=== PATIENT | female | born 1995 | race Caucasian/White ===

== ENCOUNTER 2017-12-24 06:04 | Emergency (ER) | payer MEDICAID ==
[2017-12-24] MEDS ORDERED: HYOSCYAMINE SL 0.125 MG TABLET SL STA (06:25)
--- NOTE | 2017-12-24 06:25 | ED Physician Documentation ---
PD HPI ABD PAIN - Stated complaint Stated Complaint: ABD PX - Chief complaint Chief Complaint: Abd Pain - History obtained from History obtained from: Patient - History of Present Illness Timing - onset: How many hours ago (3) Timing - duration: Hours (3) Timing - details: Gradual onset Pain level max: 8 Pain level now: 6 Quality: Aching, Pain Location: RUQ, Epigastric Radiation: Other (mid back) Improved by: Other (nothing) Worsened by: Eating (states ate macaroni and cheese with kale last night), Palpation Associated symptoms: Nausea, Vomiting (states made herself vomit x 1). No: Fever, Hematemesis, Diarrhea, Constipation, Melena, Hematochezia, Dysuria Similar symptoms before: Has not had sx before Recently seen: Not recently seen Review of Systems Ten Systems: 10 systems reviewed and negative Constitutional: denies: Fever, Chills Nose: denies: Rhinorrhea / runny nose, Congestion Throat: denies: Sore throat Cardiac: denies: Chest pain / pressure Respiratory: denies: Dyspnea, Cough, Wheezing GI: denies: Hematemesis, Bloody / black stool : denies: Dysuria, Now EGA Skin: denies: Rash Musculoskeletal: denies: Neck pain, Back pain Neurologic: denies: Headache PD PAST MEDICAL HISTORY - Past Medical History Past Medical History: No - Past Surgical History Past Surgical History: No - Present Medications Home Medications: Ambulatory Orders Medication Instructions Recorded Confirmed No Known Home Medications 12/24/17 12/24/17 - Allergies Allergies/Adverse Reactions: Allergies Allergy/AdvReac Type Severity Reaction Status Date / Time No Known Drug Allergies Allergy Verified 12/24/17 06:13 - Social History Does the pt smoke?: No Smoking Status: Never smoker Does the pt drink ETOH?: No Does the pt have substance abuse?: No - Immunizations Immunizations are current?: Yes PD ED PE NORMAL - Vitals Vital signs reviewed: Yes - General General: Alert and oriented X 3, No acute distress - HEENT HEENT: Moist mucous membranes - Neck Neck: Supple, no meningeal sign - Cardiac Cardiac: RRR, Strong equal pulses - Respiratory Respiratory: No respiratory distress, Clear bilaterally - Abdomen Abdomen: Soft, Non distended, Other (Tender palpation epigastric and right upper quadrant. Positive Forman sign) - Back Back: No CVA TTP, No spinal TTP - Derm Derm: Warm and dry - Extremities Extremities: No edema - Neuro Neuro: Alert and oriented X 3 Results - Vitals Vitals: Vital Signs - 24 hr 12/24/17 06:08 Temperature 36.2 C L Heart Rate 68 Respiratory 18 Rate Blood Pressure 136/89 H O2 Saturation 100 Oxygen O2 Source Room air PD MEDICAL DECISION MAKING - ED course Complexity details: reviewed results, re-evaluated patient, considered differential, d/w patient ED course: Patient is a 22-year-old female who presents to the emergency department with abdominal pain today. She states this feels similar to gas that she has had in the past, but on examination is tender in the right upper quadrant. Laboratory testing will be performed and right upper quadrant ultrasound ordered. Patient will be signed out to the oncoming emergency department physician for follow-up of these test results. This document was made in part using voice recognition software. While efforts are made to proofread this document, sound alike and grammatical errors may occur. - Sepsis Event Vital Signs: Vital Signs - 24 hr 12/24/17 06:08 Temperature 36.2 C L Heart Rate 68 Respiratory 18 Rate Blood Pressure 136/89 H O2 Saturation 100 Oxygen O2 Source Room air Departure - Departure Clinical Impression: Abdominal pain Qualifiers: Abdominal location: right upper quadrant Qualified Code(s): R10.11 - Right upper quadrant pain Condition: Stable
[2017-12-24 06:35] LABS: BASOPHILS % (AUTO) 0.6 %; EOSINOPHILS # (AUTO) 0.2 10^3/uL (0.0-0.7); EOSINOPHILS % (AUTO) 2.4 %; HGB - HEMOGLOBIN 12.9 g/dL (12.0-16.0); LYMPHOCYTES # (AUTO) 2.1 10^3/uL (1.5-3.5); LYMPHOCYTES % (AUTO) 28.2 %; MEAN CORPUSCULAR HGB CONC 34.3 g/dL (32.0-36.0); MEAN CORPUSCULAR VOLUME 81.5 fL (81.0-99.0); MEAN PLATELET VOLUME 8.7 fL (7.9-10.8); MONOCYTES # (AUTO) 0.4 10^3/uL (0.0-1.0); NEUTROPHILS # (AUTO) 4.8 10^3/uL (1.5-6.6); NEUTROPHILS % (AUTO) 63.8 %; PLT - PLATELET COUNT 229 10^3/uL (130-450); RED BLOOD COUNT 4.61 10^6/uL (4.20-5.40); RED CELL DISTRIBUTION WIDTH 14.5 % (12.0-15.0); WHITE BLOOD COUNT 7.5 x10^3/uL (4.8-10.8)
[2017-12-24 06:42] LABS: BILIRUBIN,URINE NEGATIVE (NEGATIVE); GLUCOSE, URINE (UA) NEGATIVE (NEGATIVE); KETONES,URINE (UA) NEGATIVE (NEGATIVE); LEUKOCYTE ESTERASE, URINE NEGATIVE (NEGATIVE); NITRITE,URINE NEGATIVE (NEGATIVE); OCCULT BLOOD,URINE NEGATIVE (NEGATIVE); PH,URINE 6.5 PH (5.0-7.5); PROTEIN,URINE NEGATIVE (NEGATIVE); UROBILINOGEN,URINE 0.2 (NORMAL) E.U./dL (NORMAL)
[2017-12-24 06:45] LABS: CLARITY,URINE CLEAR (CLEAR); HCG UR QUAL NEGATIVE
[2017-12-24 06:53] LABS: ALBUMIN 4.2 g/dL (3.2-5.5); ALBUMIN/GLOBULIN RATIO 1.2 (1.0-2.2); BILIRUBIN,TOTAL 0.3 mg/dL (0.2-1.0); CALCIUM 9.1 mg/dL (8.5-10.3); CREATININE 0.8 mg/dL (0.4-1.0); TOTAL PROTEIN 7.8 g/dL (6.7-8.2)
--- NOTE | 2017-12-24 09:41 | Ultrasound Report ---
Reason: RUQ abd pain Procedure Date: 12/24/2017 Accession Number: [id number] / [id number] Procedure: US - Abdomen Limited CPT Code: FULL RESULT: EXAM: ABDOMEN ULTRASOUND LIMITED, RUQ EXAM DATE: 12/24/2017 07:57 AM. CLINICAL HISTORY: Right upper quadrant abdominal pain. COMPARISON: None. TECHNIQUE: Real-time scanning was performed with static images obtained. FINDINGS: Liver: Parenchymal echotexture is mildly coarse and echogenic which can be seen with parenchymal disease such as steatosis. The right lobe measures at least 14.7 cm. Main portal vein flow: Hepatopetal. Gallbladder: The sonographic Forman sign could not be assessed as the patient had been medicated. The gallbladder demonstrates multiple mobile calculi. There is no pericholecystic fluid, significant gallbladder wall thickening or pericholecystic abscess. Biliary System: CBD measures 4 mm. No intrahepatic or extrahepatic ductal dilatation. Other: Kidney measures up to 11.4 cm and demonstrates preserved flow by color Doppler with no overt calculi or hydronephrosis. IMPRESSION: Cholelithiasis. The sonographic Forman sign could not be assessed as the patient had been medicated. The examination is formally equivocal, however, cholecystitis is felt to be less likely. If clinical suspicion for cholecystitis persists, recommend HIDA scan. RADIA
--- NOTE | 2017-12-24 10:26 | ED Physician Documentation ---
PD HPI ABD PAIN - Stated complaint Stated Complaint: ABD PX - Chief complaint Chief Complaint: Abd Pain - History obtained from History obtained from: Patient PD PAST MEDICAL HISTORY - Past Medical History Past Medical History: No - Past Surgical History Past Surgical History: No - Present Medications Home Medications: Ambulatory Orders Medication Instructions Recorded Confirmed No Known Home Medications 12/24/17 12/24/17 - Allergies Allergies/Adverse Reactions: Allergies Allergy/AdvReac Type Severity Reaction Status Date / Time No Known Drug Allergies Allergy Verified 12/24/17 06:13 - Social History Does the pt smoke?: No Smoking Status: Never smoker Does the pt drink ETOH?: No Does the pt have substance abuse?: No - Immunizations Immunizations are current?: Yes Results - Vitals Vitals: Vital Signs - 24 hr 12/24/17 12/24/17 06:08 08:16 Temperature 36.2 C L Heart Rate 68 53 L Respiratory 18 15 Rate Blood Pressure 136/89 H 111/77 O2 Saturation 100 99 Oxygen O2 Source Room air - Labs Labs: Laboratory Tests 12/24/17 12/24/17 12/24/17 06:25 06:25 06:30 WBC 7.5 RBC 4.61 Hgb 12.9 Hct 37.6 MCV 81.5 MCH 28.0 MCHC 34.3 RDW 14.5 Plt Count 229 MPV 8.7 Neut # (Auto) 4.8 Lymph # (Auto) 2.1 [place] # (Auto) 0.4 Eos # (Auto) 0.2 Baso # (Auto) 0.0 Absolute Nucleated RBC 0.00 Nucleated RBC % 0.0 Sodium 133 L Potassium 4.0 Chloride 95 L Carbon Dioxide 29 Anion Gap 9.0 BUN 15 Creatinine 0.8 Estimated GFR (MDRD) 89 Glucose 115 H Calcium 9.1 Total Bilirubin 0.3 AST 25 ALT 34 Alkaline Phosphatase 69 Total Protein 7.8 Albumin 4.2 Globulin 3.6 Albumin/Globulin Ratio 1.2 Lipase 39 Urine Color YELLOW Urine Clarity CLEAR Urine pH 6.5 Ur Specific [place] 1.025 Urine Protein NEGATIVE Urine Glucose (UA) NEGATIVE Urine Ketones NEGATIVE Urine Occult Blood NEGATIVE Urine Nitrite NEGATIVE Urine Bilirubin NEGATIVE Urine Urobilinogen 0.2 (NORMAL) Ur Leukocyte Esterase NEGATIVE Ur Microscopic Review NOT INDICATED Urine Culture Comments NOT INDICATED Urine HCG, Qual 12/24/17 06:30 WBC RBC Hgb Hct MCV MCH MCHC RDW Plt Count MPV Neut # (Auto) Lymph # (Auto) [place] # (Auto) Eos # (Auto) Baso # (Auto) Absolute Nucleated RBC Nucleated RBC % Sodium Potassium Chloride Carbon Dioxide Anion Gap BUN Creatinine Estimated GFR (MDRD) Glucose Calcium Total Bilirubin AST ALT Alkaline Phosphatase Total Protein Albumin Globulin Albumin/Globulin Ratio Lipase Urine Color Urine Clarity Urine pH Ur Specific [place] 1.025 Urine Protein Urine Glucose (UA) Urine Ketones Urine Occult Blood Urine Nitrite Urine Bilirubin Urine Urobilinogen Ur Leukocyte Esterase Ur Microscopic Review Urine Culture Comments Urine HCG, Qual NEGATIVE PD MEDICAL DECISION MAKING - ED course Complexity details: reviewed results, re-evaluated patient (Signed out from Dr Le to follow up on RUQ US results. US showed cholelithiasis without obstruction or cholecystitis. Pt's abdomen soft nontender BS +. Pt NAD nontoxic. Will discharge for follow up w/ PCP.), d/w patient (Pt NAD states feeling b dorene. Informed of labs and RUQ US results. Discussed outpatient treatment of OTC Tylenol or Motriin (take w/ food) and diet of low cholesterol and avoiding fatty, greasy foods. Pt expressede understanding.) - Sepsis Event Vital Signs: Vital Signs - 24 hr 12/24/17 12/24/17 06:08 08:16 Temperature 36.2 C L Heart Rate 68 53 L Respiratory 18 15 Rate Blood Pressure 136/89 H 111/77 O2 Saturation 100 99 Oxygen O2 Source Room air Departure - Departure Disposition: 01 Home, Self Care Clinical Impression: Abdominal pain Qualifiers: Abdominal location: right upper quadrant Qualified Code(s): R10.11 - Right upper quadrant pain Cholelithiasis Qualifiers: Cholelithiasis location: gallbladder Cholecystitis presence: without cholecystitis Biliary obstruction: without biliary obstruction Qualified Code(s): K80.20 - Calculus of gallbladder without cholecystitis without obstruction Condition: Good Instructions: Abdominal Pain Comments: FOLLOW UP W/ YOUR PCP FOR REEVALUATION. YOUR ULTRASOUND SHOULD STONES IN THE GALLBLADDER. YOUR DIET SHOULD BE FAT FREE, NO GREASY, FATTY, FRIED FOODS. OTC T YLENOL OR MOTRIN FOR PAIN. IF WORSE RETURN TO THE E.R.
[2017-12-24 10:41] VITALS: BP 117/73
== END 2017-12-24 10:41 | disposition home or self-care (01) ==
LOC: ED 06:04
DX: K80.20 Calculus of gallbladder without cholecystitis without obstruction (principal)
CPT/HCPCS: 36415; 76705; 80053; 81003; 81025; 83690; 85025; 99283; A9270; 81001; 87086

== ENCOUNTER 2018-09-03 16:55 | Day surgery (SDC) | payer MEDICAID, OTHER ==
[2018-09-03] MEDS ORDERED: HYDROmorphone 1 MG/ML CARPUJECT IVP STA ×3 (17:22→22:40)
[2018-09-03] MEDS ORDERED: SODIUM CHLORIDE 0.9% 1,000 ML IV ONE ×2 (17:22→19:47)
[2018-09-03] MEDS ORDERED: ONDANSETRON 4 MG/2 ML VIAL IVP STA ×2 (17:22→19:47)
--- NOTE | 2018-09-03 17:25 | ED Physician Documentation ---
PD HPI ABD PAIN - Stated complaint Stated Complaint: ABD PX - Chief complaint Chief Complaint: Abd Pain - History obtained from History obtained from: Patient, Family (dad) - History of Present Illness Timing - onset: Last night (23-year-old woman with history of gallstones. She had an attack in December and was seen here, ultrasound confirmatory then. Has not had any pain until last night where after a large meal developed abdominal cramping and subsequently developed overnight more significant upper abdominal pain radiating to the back with vomiting.) Review of Systems Constitutional: denies: Fever, Chills Nose: reports: Reviewed and negative Cardiac: reports: Reviewed and negative Respiratory: reports: Reviewed and negative PD PAST MEDICAL HISTORY - Past Surgical History Past Surgical History: No - Present Medications Home Medications: Ambulatory Orders Medication Instructions Recorded Confirmed No Known Home Medications 12/24/17 12/24/17 - Allergies Allergies/Adverse Reactions: Allergies Allergy/AdvReac Type Severity Reaction Status Date / Time No Known Drug Allergies Allergy Verified 09/03/18 17:12 - Social History Does the pt smoke?: No Smoking Status: Never smoker Does the pt drink ETOH?: No Does the pt have substance abuse?: No - Immunizations Immunizations are current?: Yes PD ED PE NORMAL - Vitals Vital signs reviewed: Yes - General General: Alert and oriented X 3, No acute distress - HEENT HEENT: PERRL, EOMI - Neck Neck: Supple, no meningeal sign, No bony TTP - Cardiac Cardiac: RRR, No murmur - Respiratory Respiratory: No respiratory distress, Clear bilaterally - Abdomen Abdomen: Other (Mild diffuse tenderness with more significant tenderness in the epigastrium without surgical signs.) - Back Back: No CVA TTP, No spinal TTP - Derm Derm: Normal color, Warm and dry - Extremities Extremities: No edema, No calf tenderness / cord - Neuro Neuro: Alert and oriented X 3, Normal speech Results - Vitals Vitals: Vital Signs - 24 hr 09/03/18 09/03/18 09/03/18 17:10 19:54 19:58 Temperature 36.4 C L Heart Rate 96 70 Respiratory 20 18 Rate Blood Pressure 130/90 H 121/72 O2 Saturation 97 98 Oxygen O2 Source Room air - Labs Labs: Laboratory Tests 09/03/18 09/03/18 09/03/18 17:40 18:38 18:38 WBC 11.9 H RBC 4.53 Hgb 12.2 Hct 39.3 MCV 86.8 MCH 26.9 L MCHC 31.0 L RDW 13.6 Plt Count 230 MPV 10.6 Neut # (Auto) 10.1 H Lymph # (Auto) 1.2 L [place] # (Auto) 0.5 Eos # (Auto) 0.0 Baso # (Auto) 0.1 Absolute Nucleated RBC 0.00 Nucleated RBC % 0.0 Sodium 137 Potassium 3.5 Chloride 103 Carbon Dioxide 25 Anion Gap 9.0 BUN 8 Creatinine 0.7 Estimated GFR (MDRD) 103 Glucose 106 H Calcium 8.6 Total Bilirubin 0.6 AST 17 ALT 24 Alkaline Phosphatase 54 Total Protein 7.3 Albumin 4.1 Globulin 3.2 Albumin/Globulin Ratio 1.3 Lipase 35 Urine Color YELLOW Urine Clarity CLEAR Urine pH 6.0 Ur Specific [place] 1.010 Urine Protein NEGATIVE Urine Glucose (UA) NEGATIVE Urine Ketones TRACE Urine Occult Blood SMALL H Urine Nitrite NEGATIVE Urine Bilirubin NEGATIVE Urine Urobilinogen 0.2 (NORMAL) Ur Leukocyte Esterase NEGATIVE Urine RBC 0-5 Urine WBC 0-3 Ur Squamous Epith Cells MANY Squamous H Urine Bacteria Many H Ur Microscopic Review INDICATED Urine Culture Comments NOT INDICATED Urine HCG, Qual NEGATIVE - Rads (name of study) RUQ sono Radiology: EMP read contemporaneously, See rad report PD MEDICAL DECISION MAKING - ED course ED course: 23-year-old woman with known gallstones presents with 24 hours of intractable pain despite narcotic pain medication here. She has a white count of 11.9 with normal transaminases and bilirubin. Ultrasound shows multiple gallstones to my eye but no gallbladder wall thickening or biliary ductal dilatation. Spoke with Dr. Khalil for consultation at 7:47 PM. He plans to take her to the OR tomorrow morning for a laparoscopic cholecystectomy. Departure - Departure Disposition: ED Transfer to [facility] Clinical Impression: Cholecystitis Condition: Serious
[2018-09-03 18:03] LABS: BILIRUBIN,URINE NEGATIVE (NEGATIVE); GLUCOSE, URINE (UA) NEGATIVE (NEGATIVE); KETONES,URINE (UA) TRACE mg/dL (NEGATIVE); LEUKOCYTE ESTERASE, URINE NEGATIVE (NEGATIVE); NITRITE,URINE NEGATIVE (NEGATIVE); OCCULT BLOOD,URINE SMALL (NEGATIVE); PROTEIN,URINE NEGATIVE (NEGATIVE); UROBILINOGEN,URINE 0.2 (NORMAL) E.U./dL (NORMAL)
[2018-09-03 18:10] LABS: CLARITY,URINE CLEAR (CLEAR); HCG UR QUAL NEGATIVE
[2018-09-03 18:14] LABS: BACTERIA,URINE Many /HPF (None Seen); RBC,URINE 0-5 /HPF (0-5); SQUAMOUS EPITHELIAL CELL,UR MANY Squamous (<= Few)
[2018-09-03 18:44] LABS: BASOPHILS # (AUTO) 0.1 10^3/uL (0.0-0.1); BASOPHILS % (AUTO) 0.4 %; EOSINOPHILS % (AUTO) 0.1 %; HGB - HEMOGLOBIN 12.2 g/dL (12.0-16.0); LYMPHOCYTES # (AUTO) 1.2 10^3/uL (1.5-3.5); LYMPHOCYTES % (AUTO) 10.3 %; MEAN CORPUSCULAR HEMOGLOBIN 26.9 pg (27.0-31.0); MEAN CORPUSCULAR VOLUME 86.8 fL (81.0-99.0); MEAN PLATELET VOLUME 10.6 fL (7.9-10.8); MONOCYTES # (AUTO) 0.5 10^3/uL (0.0-1.0); NEUTROPHILS # (AUTO) 10.1 10^3/uL (1.5-6.6); NEUTROPHILS % (AUTO) 84.8 %; PLT - PLATELET COUNT 230 10^3/uL (130-450); RED BLOOD COUNT 4.53 10^6/uL (4.20-5.40); RED CELL DISTRIBUTION WIDTH 13.6 % (12.0-15.0); WHITE BLOOD COUNT 11.9 x10^3/uL (4.8-10.8)
[2018-09-03 18:57] LABS: ALBUMIN 4.1 g/dL (3.2-5.5); ALBUMIN/GLOBULIN RATIO 1.3 (1.0-2.2); BILIRUBIN,TOTAL 0.6 mg/dL (0.2-1.0); CALCIUM 8.6 mg/dL (8.5-10.3); CREATININE 0.7 mg/dL (0.4-1.0); TOTAL PROTEIN 7.3 g/dL (6.7-8.2)
--- NOTE | 2018-09-03 20:22 | Ultrasound Report ---
Reason: RUQ pain, known gallstones Procedure Date: 09/03/2018 Accession Number: [id number] / [id number] Procedure: US - Abdomen Limited CPT Code: FULL RESULT: EXAM: ABDOMEN ULTRASOUND LIMITED, RUQ EXAM DATE: 09/03/2018 07:43 PM. CLINICAL HISTORY: Right upper quadrant pain, known gallstones. COMPARISON: ABDOMEN LIMITED 12/24/2017 7:16 AM. TECHNIQUE: Real-time scanning was performed with static images obtained. FINDINGS: Liver: Normal in size and echotexture. 15.4 cm. Main portal vein flow: Hepatopetal. Gallbladder: Multiple mobile gallstones. Gallbladder wall measures 1.6 mm, within normal limits. No pericholecystic fluid. Negative sonographic Forman sign. Patient is medicated. The common duct measures 4.7 mm. No bile duct dilatation is seen. The right kidney measures 10.8 cm in length and there is no hydronephrosis. IMPRESSION: 1. Cholelithiasis without evidence for acute cholecystitis. See above. RADIA
[2018-09-03] MEDS ORDERED: METOCLOPRAMIDE 10 MG/2 ML VIAL IVP STA (22:40)
--- NOTE | 2018-09-04 00:36 | CONSULTATION NOTE ---
Referring Provider Name of Referring Provider:: Dr. David Martinez Consult Date: 09/03/18 Chief Complaint - Chief Complaint Chief Complaint: Right upper quadrant pain associated with nausea vomiting and a history of History of Present Illness - Admitted From Admitted From:: Not admittedoutpatient - History Obtained From Records Reviewed: Yes History obtained from: Patient, the chart, father, Dr. Ortega Exam Limitations: None - History of Present Illness HPI Comment/Other: This is a very pleasant 23-year-old female who was evaluated in room 7 at [facility]'s emergency department for recurrent right upper quadrant pain associated with the ingestion of a fatty meal. The pain is described as sharp and radiating through to the patient's back. Is associated with nausea and vomiting known history of gallstones dating back to December 2017 when she [facility]. In the interim her symptoms of become somewhat more frequent and more severe. History - Past Medical History Cardiovascular: reports: None Respiratory: reports: None Neuro: reports: None Endocrine/Autoimmune: reports: None : reports: None HEENT: reports: None Psych: reports: None MRSA Hx?: No Meds/Allgy - Home Medications Home Medications: Ambulatory Orders Medication Instructions Recorded Confirmed No Known Home Medications 12/24/17 12/24/17 - Allergies Allergies/Adverse Reactions: Allergies Allergy/AdvReac Type Severity Reaction Status Date / Time No Known Drug Allergies Allergy Verified 09/03/18 17:12 Review of Systems - Gastrointestinal Gastrointestinal: reports: Abdominal pain, Abdominal distention, Diarrhea, Nausea, Vomiting Exam - Vital Signs Reviewed Vital Signs: Yes Vital Signs: Vital Signs x48h Temp Pulse Pulse Resp BP BP Pulse Ox 09/04/18 00:28 36.5 C 68 16 136/83 H 100 09/04/18 00:07 36.4 C L 77 14 118/75 99 09/03/18 22:24 36.7 C 82 16 135/95 H 98 09/03/18 19:58 70 09/03/18 19:54 18 121/72 98 09/03/18 17:10 36.4 C L 96 20 130/90 H 97 - Physical Exam General Appearance: positive: Mild distress Eyes Bilateral: positive: No lid inflammation, Conjunctivae nml, No scleral icterus ENT: positive: Dry mucous membranes Neck: positive: Trachea midline Respiratory: positive: Chest non-tender, No respiratory distress, Breath sounds nml Cardiovascular: positive: Regular rate & rhythm Abdomen: positive: Nml bowel sounds, Tenderness (Primarily the epigastrium but somewhat onto the right upper quadrant.) Skin: positive: Color nml Extremities: positive: Non-tender, Full ROM, Nml appearance Conclusion/Plan - Diagnosis Diagnosis: Symptomatic cholelithiasis, recurrent pain - Plan Plan: Laparoscopic cholecystectomy, possible open cholecystectomy, possible intraoperative cholangiogran, possible common bile duct exploration. The indications, procedure, alternatives including no surgery, ingestion of Actigall, possible risks including infection (deep or superficial), bleeding requiring transfusion (with all of its risks), common bile duct injury requring repair and additional surgery, and were fully explained to the patient and all questions answered. I also explained the pathophysiology. I explained that following the surgery I did not want her lifting anything over 15 pounds for 6 weeks to allow for optimal healing and to decrease the likelihood that a hernia would occur. All questions were fully answered. Verbal and written consent was obtained. The patient, in preparation for surgery will be nothing by mouth, and receive 2 gm of Cephalexin with induction. I asked her to contact me with any surgical questions and her concerns and she stated that she would. I asked her to let me know if there is any way we can make her stay at [facility] more comfortable and she stated that she would let me know. The plan is to do this operation as an outpatient procedure and to discharge her home following the procedure. 45 minutes of [id number] time spent with the patient, the majority of which w as spent in discussion, coordination of care, and completion of the requisite paperwork Dragon disclaimer: This document was created in part using voice recognition technology. Because of the inherent limitations of the system ([employer]'s [employer] user manual states that the licensee understands that speech recognition is a statistical process and that recognition errors are inherent in the process), occasional same sounding word substitutions and grammatical errors do occur and persist d espite proofreading. Please read this document for context. - Lab Results Lab results reviewed: Yes Fish Bones: 09/03/18 18:38 09/03/18 18:38 - Diagnostic Imaging Results Diagnostic Imaging Results: positive: Final report reviewed, Read independently
[2018-09-04] MEDS ORDERED: HYDROmorphone 0.5 MG/0.5 ML SYRINGE IVP PRN ×2 (00:50→10:03)
[2018-09-04] MEDS ORDERED: ONDANSETRON 4 MG/2 ML VIAL IVP PRN (00:50)
[2018-09-04] MEDS ORDERED: CEFAZOLIN SODIUM IN 0.9 % NACL 2 GM/100 ML BAG IV SCH (01:00)
[2018-09-04] MEDS ORDERED: LACTATED RINGERS 1,000 ML IV ONE ×3 (05:20→10:26)
[2018-09-04] MEDS ORDERED: SODIUM CHLORIDE FLUSH 0.9% 10 ML SYRINGE ONE ×2 (05:24→12:37)
[2018-09-04] MEDS ORDERED: BUPIVACAINE 0.5% PF 10 ML VIAL ONE (07:52)
--- NOTE | 2018-09-04 08:05 | ANESTHESIA ---
Pre-Anesthesia VS, & Labs - Diagnosis Diagnosis Symptomatic cholelithiasis, recurrent pain - Procedure laparoscopic cholecystectomy Vital Signs: Temp Pulse Resp BP Pulse Ox 37.2 C 78 18 124/70 99 09/04/18 07:36 09/04/18 07:36 09/04/18 07:36 09/04/18 07:36 09/04/18 07:36 Height 5 ft 4 in Weight (kg) 76 kg Body Mass Index 28.8 - NPO >8 hours - Is Patient ?: No - Lab Results Current Lab Results: Laboratory Tests 09/03/18 18:38: Sodium 137, Potassium 3.5, Chloride 103, Carbon Dioxide 25, Anion Gap 9.0, BUN 8, Creatinine 0.7, Estimated GFR (MDRD) 103, Glucose 106 H, Calcium 8.6, Total Bilirubin 0.6, AST 17, ALT 24, Alkaline Phosphatase 54, Total Protein 7.3, Albumin 4.1, Globulin 3.2, Albumin/Globulin Ratio 1.3, Lipase 35 09/03/18 18:38: WBC 11.9 H, RBC 4.53, Hgb 12.2, Hct 39.3, MCV 86.8, MCH 26.9 L, MCHC 31.0 L, RDW 13.6, Plt Count 230, MPV 10.6, Neut # (Auto) 10.1 H, Lymph # (Auto) 1.2 L, [place] # (Auto) 0.5, Eos # (Auto) 0.0, Baso # (Auto) 0.1, Absolute Nucleated RBC 0.00, Nucleated RBC % 0.0 Fish Bones: 09/03/18 18:38 09/03/18 18:38 Home Medications and Allergies Active Medications Hydromorphone HCl (Dilaudid Inj Syringe) 0.5 mg IVP Q1H PRN PRN Reason: PAIN Last Admin: 09/04/18 05:22 Dose: 0.5 mg Ondansetron HCl (Zofran Inj) 4 mg IVP Q4HR PRN PRN Reason: Nausea / Vomiting Last Admin: 09/04/18 05:03 Dose: 4 mg No Known Home Medications 12/24/17 Allergies/Adverse Reactions: Allergies Allergy/AdvReac Type Severity Reaction Status Date / Time No Known Drug Allergies Allergy Verified 09/03/18 17:12 Anes History & Medical History - Anesthetic History Anesthesia Complications: reports: No previous complications Family history of Anesthesia Complications: Denies Family history of Malignant Hyperthermia: Denies - Medical History Cardiovascular: reports: None Pulmonary: reports: None Gastrointestinal: reports: None Urinary: reports: None Neuro: reports: None Musculoskeletal: reports: None Endocrine/Autoimmune: reports: None Blood Disorders: reports: None Skin: reports: None Smoking Status: Never smoker Exam General: Alert, Oriented x3, Cooperative, No acute distress Dental: WNL Mouth Openin Fingerbreadth Neck Mobility: Normal Mallampati classification: I Thyromental Distance: greater than 6 cm Respiratory: Lungs clear, Normal breath sounds, No respiratory distress, No accessory muscle use Cardiovascular: Regular rate, Normal S1, Normal S2, No murmurs Plan Anesthesia Type: General Consent for Procedure(s) Verified and Reviewed: No Code Status: Attempt Resuscitation ASA classification: 1-Healthy patient Is this case an emergency?: No
[2018-09-04] MEDS ORDERED: ACETAMINOPHEN 1,000 MG/100 ML 100 ML IV ONE (09:16)
[2018-09-04] MEDS ORDERED: LIDOCAINE-MPF 2% 5 ML VIAL IM ONE (09:16)
[2018-09-04] MEDS ORDERED: ROCURONIUM 50 MG/5 ML VIAL IVP ONE (09:16)
[2018-09-04] MEDS ORDERED: KETOROLAC 30 MG/ML VIAL IVP ONE (09:16)
[2018-09-04] MEDS ORDERED: DEXAMETHASONE 4 MG/ML VIAL IVP ONE (09:16)
[2018-09-04] MEDS ORDERED: fentaNYL 100 MCG/2 ML VIAL IVP ONE (09:16)
[2018-09-04] MEDS ORDERED: ceFAZolin 1 GM VIAL IV ONE (09:16)
[2018-09-04] MEDS ORDERED: PROPOFOL 200 MG/20 ML VIAL IVP ONE (09:16)
[2018-09-04] MEDS ORDERED: ONDANSETRON 4 MG/2 ML VIAL IVP ONE (09:16)
[2018-09-04] MEDS ORDERED: BUPIVACAINE 0.5% PF 30 ML VIAL SUBQ ONE (09:19)
[2018-09-04] MEDS ORDERED: HYDROcod/ACETAM 5/325 MG TABLET PO PRN (10:03)
--- NOTE | 2018-09-04 10:17 | OPERATIVE REPORT ---
Operative Report - General Procedure Date: 09/04/18 Planned Procedure: Laparoscopic cholecystectomy Pre-Op Diagnosis: Recurrent symptomatic cholelithiasis Procedure Performed: Laparoscopic cholecystectomy Post Op Diagnosis: Same - Procedure Note Primary Surgeon: Mina Khalil MD Anesthesia Provider: Mina Marie MD Anesthesia Technique: General ET tube, Local (30 mL of half percent Marcaine) IV Fluids (mL): 500 Estimated Blood Loss (mL): 5 Drain/Tube Type: Other (None.) Complications: None. - Other Other Information/Narrative: OPERATIVE DESCRIPTION/REPORT: After verbal and written informed consent was obtained detailing the risks of infection, bleeding requiring transfusion with its risks, nerve injury, and , as well as the possibility of a colostomy, and after I met with the patient confirming the surgery, the patient was brought to the operative suite and placed supine on the operating table. Great care was taken to avoid pressure points to prevent pressure necrosis or nerve injury. Monitoring devices were applied along with TEDs and pneumatic compressive stockings (to prevent DVT). The patient received preoperative antibiotics for surgical prophylaxis. Dr. Mina Marie sedated and anethetized the patient for the entire procedure. The patient was prepped and draped in the usual sterile manner. A "time in" then confirmed that the patient was identified with 3 identifiers (name, date and medical record number), the history and physical was in the chart, the signed consent confirming the procedure was in the chart, the patient was in the correct position, the aforementioned prophylactic measures were in place or given, we had the correct personnel and equipment to complete the procedure and that anesthesia, surgery and nursing were given an opportunity to express any concerns. With the agreement of everyone in the room, we proceeded with the operation. The initial incision was curvilinear at the supraumbilical position and dissection to the linea alba was completed using blunt dissection. The umbilicus was particularly deep and with a dissection down to the linea alba the base the umbilicus was clamped with the Stevie that was used to pull up on the fascia and compromised. As a result, I made a note to resect this portion at the completion of the operation. The linea alba was grasped with a Stevie and incised. In a similar manner the peritoneum was grasped and incised using Metzenbaum scissors. In this location, a 12 mm blunt tipped, balloon tipped port was placed and the balloon was inflated to keep the port in position. The abdominal cavity was insufflated with carbon dioxide to steady-state pressure of 15 mmHg. Three additional 5 mm ports were placed in standard location for laparoscopic cholecystectomy (subxiphoid and 2 right subcostal) under direct vision of the 30 degree laparoscope and without incident. The patient was then placed in reverse Trendelenburg position and was rotated slightly to their left. The gallbladder fundus was grasped with an atraumatic grasper. Multiple adhesions had to be taken down by blunt and sharp dissection along with electrocautery. Eventually, we identified the infundibulum, and this was then grasped and retracted inferior and laterally. Dissection was then begun in the angle of Calot. The cystic duct and (slightly medially and posteriorly) cystic artery were clearly identified. The critical view was obtained. Two clips proximally and one clip distally were used to control both the cystic duct and cystic artery. The clips were carefully placed to avoid occluding the juncture with the common bile duct. Both the cystic duct and then the cystic artery were then transected with laparoscopic zackary. The gallbladder was then removed from its fossa in a retrograde fashion using electrocautery. With the 30 degree 5 mm scope in the subxiphoid position, the gallbladder was placed in an EndoCatch bag to be extracted through the 12 mm port site. I irrigated the right upper quadrant with a liter of warm sterile saline, and the area was aspirated dry. I inspected the gallbladder fossa and there was no bleeding or bile leak. Clips on the cystic duct and cystic artery appeared to be secure. I briefly visually explored the abdomen. There was no other evidence of overt pathology. I injected the port sites at the peritoneal, fascial, and skin levels under direct vision with 0.5% Marcaine. All ports and the EndoCatch containing the gallbladder were removed. Following gallbladder removal, the remaining carbon dioxide was expelled from the abdomen. The fascia at the umbilicus was reapproximated using 2 [id number] 0 Vicryl sutures. The base the umbilicus was closed using a 2-0 Vicryl [id number] suture and sutured down to the fascia with the same suture in order to give the patient an "innie." The skin at each port site was approximated using a subcuticular 4-0 Monocryl. The surgical count of instruments, needles and spo nges was reported as correct twice. Mastisol, Steri-Strips and sterile surgical dressings were applied. The patient was then awakened from anesthesia, extubated, and having tolerated the procedure well, was transported to the recovery room. No complications were encountered. A "time out" confirmed the operation performed, the fluids given, the estimated blood loss and anesthesia, surgery and nursing were given an opportunity to express any concerns. Walkabout disclaimer: This document was created in part using voice recognition technology. Because of the inherent limitations of the system ([employer]'s Walkabout [employer] user manual states that the licensee understands that speech recognition is a statistical process and that recognition errors are inherent in the process), occasional same sounding word substitutions and grammatical errors do occur and persist despite proofreading. Please read this document for context.
[2018-09-04] MEDS: ONDANSETRON 4 MG/2 ML VIAL IVP PRN ×2 (10:23→12:31)
[2018-09-04] MEDS ORDERED: SODIUM CHLORIDE FLUSH 0.9% 10 ML SYRINGE IVP SCH (14:00)
[2018-09-04 15:29] VITALS: BP 122/59
[2018-09-04] MEDS ORDERED: ONDANSETRON ODT 4 MG TABLET TL SCH (16:17)
== END 2018-09-04 16:30 | disposition home or self-care (01) ==
LOC: ED 16:55 → SDS 09-04 00:01 → MS2 09-04 00:01 → SDS 09-04 16:30
PROVIDERS: ATTEND Surgery
PROC: 0FT44ZZ Resection of Gallbladder, Percutaneous Endoscopic Approach (ICD-10-PCS; principal; 2018-09-03)
DX: K80.20 Calculus of gallbladder without cholecystitis without obstruction (principal)
CPT/HCPCS: 36415; 76705; 80053; 81001; 81003; 81025; 83690; 85025; 87086; 96361; 96374; 96376; 99284

== ENCOUNTER 2018-09-08 13:47 | Outpatient (CLI) | payer OTHER ==
[2018-09-08 14:09] LABS: BILIRUBIN,URINE NEGATIVE (NEGATIVE); GLUCOSE, URINE (UA) NEGATIVE (NEGATIVE); KETONES,URINE (UA) NEGATIVE (NEGATIVE); LEUKOCYTE ESTERASE, URINE NEGATIVE (NEGATIVE); NITRITE,URINE NEGATIVE (NEGATIVE); OCCULT BLOOD,URINE NEGATIVE (NEGATIVE); PH,URINE 7.5 PH (5.0-7.5); PROTEIN,URINE NEGATIVE (NEGATIVE); UROBILINOGEN,URINE 1 (NORMAL) E.U./dL (NORMAL)
[2018-09-08 14:10] LABS: CLARITY,URINE CLEAR (CLEAR)
== END 2018-09-08 13:48 | disposition home or self-care (01) ==
LOC: LAB 13:47
PROVIDERS: ATTEND Surgery
DX: R30.0 Dysuria (principal)
CPT/HCPCS: 81001; 81003

== ENCOUNTER 2022-03-07 20:44 | Emergency (ER) | payer OTHER ==
[2022-03-07 21:03] VITALS: BP 126/91
[2022-03-08 00:44] LABS: RAPID STREP SCREEN Negative (Negative)
--- NOTE | 2022-03-08 03:03 | ED Physician Documentation ---
PD HPI HEENT - Stated complaint Stated Complaint: C+,SORE THROAT - Chief complaint Chief Complaint: General PD PAST MEDICAL HISTORY - Past Medical History Cardiovascular: None Respiratory: None Neuro: None Endocrine/Autoimmune: None GI: None : None HEENT: None Psych: None Musculoskeletal: None Derm: None - Past Surgical History Past Surgical History: No - Present Medications Home Medications: Ambulatory Orders Medication Instructions Recorded Confirmed Docusate Sodium 250Mg Capsule 250 mg PO DAILY #10 capsule 09/04/18 [Colace 250Mg Capsule] HYDROcod/ACETAM 5/325 [[place] 5/325] 1 each PO Q4H #20 tablet 09/04/18 - Allergies Allergies/Adverse Reactions: Allergies Allergy/AdvReac Type Severity Reaction Status Date / Time No Known Drug Allergies Allergy Verified 03/07/22 21:03 - Social History Does the pt smoke?: No Smoking Status: Never smoker Does the pt drink ETOH?: No Does the pt have substance abuse?: No - Immunizations Immunizations are current?: Yes Results - Vitals Vitals: Vital Signs - 24 hr 03/07/22 20:57 Temperature 37.4 C Heart Rate 73 Respiratory 16 Rate Blood Pressure 126/91 H O2 Saturation 99 Oxygen O2 Source Room air - Labs Labs: Laboratory Tests 03/08/22 00:26 Group A Strep Rapid Negative
== END 2022-03-08 05:32 | disposition left against medical advice (07) ==
LOC: ED 20:44
DX: Z53.29 Procedure and treatment not carried out because of patient's decision for other reasons (principal)
CPT/HCPCS: 87070; 87430

== ENCOUNTER 2023-05-31 08:08 | Emergency (ER) | payer SELFPAY ==
--- NOTE | 2023-05-31 08:38 | ED Physician Documentation ---
History of Present Illness - Stated complaint Stated Complaint: CHEST PX - Chief complaint Chief Complaint: General - History obtained from History obtained from: Patient - History of Present Illness Timing: Today Pain level max: 3 Pain level now: 0 - Additonal information Additional information: Patient is a 27-year-old female who presents to the emergency department complaining of left-sided chest pain. Worse with movement, better with rest. Worse with palpation. She describes it as a warm pain. She states that it feels similar to when she has pulled a muscle in the past. She states that yesterday she did a large amount of yard work including swinging a pick ax. No cardiac history. No cough. No congestion. No nausea or vomiting. Has not taken anything for the pain. No family history of young cardiac disease. Patient does not smoke. She does not take any medications at home. No difficulty breathing. No nausea or vomiting. Review of Systems Constitutional: denies: Fever, Chills Respiratory: denies: Cough GI: denies: Vomiting, Diarrhea Skin: denies: Rash Musculoskeletal: denies: Neck pain, Back pain Neurologic: denies: Headache PD PAST MEDICAL HISTORY - Past Medical History Cardiovascular: None Respiratory: None Neuro: None Endocrine/Autoimmune: None GI: None : None HEENT: None Psych: None Musculoskeletal: None Derm: None - Past Surgical History Past Surgical History: No - Present Medications Home Medications: Ambulatory Orders Medication Instructions Recorded Confirmed No Known Home Medications 05/31/23 05/31/23 - Allergies Allergies/Adverse Reactions: Allergies Allergy/AdvReac Type Severity Reaction Status Date / Time No Known Drug Allergies Allergy Verified 05/31/23 08:18 - Social History Does the pt smoke?: No Smoking Status: Never smoker Does the pt drink ETOH?: No Does the pt have substance abuse?: No - Immunizations Immunizations are current?: Yes PD ED PE NORMAL - Vitals Vital signs reviewed: Yes - General General: Alert and oriented X 3, No acute distress - HEENT HEENT: Moist mucous membranes - Neck Neck: Supple, no meningeal sign - Cardiac Cardiac: RRR, Strong equal pulses - Respiratory Respiratory: No respiratory distress, Clear bilaterally - Abdomen Abdomen: Soft, Non tender, Non distended - Derm Derm: Warm and dry - Extremities Extremities: No edema, No calf tenderness / cord - Neuro Neuro: Alert and oriented X 3 - Psych Psych: Normal mood, Normal affect - Free text exam Free text exam: Tender to palpation over the left anterior chest wall, this reproduces her pain. Pain is also worse with pulling the left shoulder posteriorly and stretching the chest wall. No crepitus. No ecchymosis. No skin changes Results - Vitals Vitals: Vital Signs - 24 hr 05/31/23 08:14 Temperature 36.4 C L Heart Rate 85 Respiratory 16 Rate Blood Pressure 137/81 H O2 Saturation 99 Oxygen O2 Source Room air - EKG (time done) 0851 EKG releavant findings:: EKG personally interpreted by author of this note. Relevant findings are: Rate: Rate (enter#) (66) Rhythm: NSR [place]: Normal Intervals: Normal AR QRS: Normal Ischemia: Normal ST segments PD Medical Decision Making - ED course Complexity details: considered differential (No ST elevation [place], no aortic dissection, no PE, no tension pneumothorax, no aortic aneurysm), d/w patient ED course: 27-year-old female with what appears to be a left chest wall strain. Pain is reproducible with palpation. Started after doing an unusual activity for the patient yesterday. Does not appear to be consistent with acute coronary syndrome. No indication for blood work and x-ray at this time. Will continue Motrin and Tylenol as needed for pain at home and have her follow-up with her PCP for further care. Patient counseled regarding signs and symptoms for which I believe and urgent re-evaluation would be necessary. Patient with good understanding of and agreement to plan and is comfortable going home at this time This document was made in part using voice recognition software. While efforts are made to proofread this document, sound alike and grammatical errors may occur. Departure - Departure Disposition: 01 Home, Self Care Clinical Impression: Chest wall pain Condition: Good Instructions: ED Strain Chest Wall Follow-Up: your,doctor in 1 week if still having pain [Other] Comments: Your EKG does not show any abnormalities today. Please follow-up with your doc tor for further care. You can use Motrin or Tylenol as needed for pain. Your pain appears to be secondary to muscular strain likely from the yard work yesterday. Please return if you worsen. Forms: PCP List
[2023-05-31 09:08] VITALS: BP 125/91; O2SAT 98
== END 2023-05-31 09:05 | disposition home or self-care (01) ==
LOC: ED 08:08
DX: R07.89 Other chest pain (principal)
CPT/HCPCS: 93005; 99283